=== PATIENT | female | born 1960 | race Caucasian/White ===

== ENCOUNTER → 2018-08-16 | Outpatient (CLI) | payer OTHER ==
[~2018-08-16] MED LIST: METFORMIN500 MG PO; MULTIPLE VITAMI1 CAP PO; SIMVASTATIN20 MG PO; VITAMIN D1000 IU PO; ZESTRIL10 MG PO
== END ==
LOC: MC.RAD 08:43
DX: Z12.31 Encounter for screening mammogram for malignant neoplasm of breast (principal)

== ENCOUNTER → 2020-01-11 | Outpatient (CLI) | payer OTHER | LOC: MC.RAD 10:07 | DX: Z12.31 Encounter for screening mammogram for malignant neoplasm of breast (principal) ==

== ENCOUNTER → 2021-02-24 | Outpatient (CLI) | payer OTHER | LOC: MC.RAD 10:22 | DX: Z12.31 Encounter for screening mammogram for malignant neoplasm of breast (principal) ==